=== PATIENT | male | born 1950 | race American Indian/Alaskan Native ===

== ENCOUNTER 2017-09-30 11:32 | Outpatient (CLI) | payer MEDICARE ==
--- NOTE | 2017-09-30 12:58 | XRay Report ---
XRAY CHEST TWO VIEWS: 09/30/17 11:32:00 CLINICAL: Cough. COMPARISON: A FINDINGS: The heart is normal size. Relatively large central pulmonary vessels. Extensive multilobar reticular interstitial opacities with involvement of both upper lobes and lower lobes. No airspace disease or pleural effusion.Degenerative change in the spine with large flowing osteophytes. IMPRESSION: Extensive multilobar chronic interstitial disease. Although acute interstitial pneumonia cannot be excluded, no evidence of bronchopneumonia.
== END 2017-09-30 11:33 | disposition home or self-care (01) ==
LOC: SPVIMAG 11:32
PROVIDERS: ATTEND Internal Medicine
DX: J84.89 Other specified interstitial pulmonary diseases (principal); M47.894 Other spondylosis, thoracic region
CPT/HCPCS: 71020

== ENCOUNTER 2018-06-27 11:53 | Outpatient (CLI) | payer MEDICARE ==
--- NOTE | 2018-06-27 13:36 | XRay Report ---
PA and lateral chest: Fever. Routine views demonstrates a diffusely increase in the interstitial pulmonary pattern. There is partial sparing in the left upper lobe. There are no nodules and no infiltrates. No vascular congestion. Normal heart size. Mild dextroscoliosis of the thoracic spine. No interval change compared to prior examination in September 2017. Impression: Pulmonary fibrosis. No acute finding.
== END 2018-06-27 11:54 | disposition home or self-care (01) ==
LOC: SPVIMAG 11:53
DX: J84.10 Pulmonary fibrosis, unspecified (principal)
CPT/HCPCS: 71046